=== PATIENT | female | born 1980 | race Caucasian/White ===

== ENCOUNTER 2016-08-22 16:27 | Emergency (ER) | payer OTHER ==
[~2016-08-22 16:27] MED LIST: ALBUTEROL20 ml INH; BACTRIM DS TABL1 TA1 PO; CLEOCIN HCL300 M1 PO; CLONAZEPAM0.5 MG PO; KLONOPIN PO; METFORMIN PO; MONDOXYNE NL100 MG PO; MOTRIN600 M1 PO; NO MEDICATIONS; NORCO1 TAB 10/3 PO; PREDNISONE PO; SEROQUEL PO; TESSALON PERLE100 M1 PO; TYLENOL #3 PO; VOLTAREN75 MG PO; ZITHROMAX PO
== END 2016-08-22 17:05 | disposition home or self-care (01) ==
LOC: SED 16:27
DX: Z71.1 Person with feared health complaint in whom no diagnosis is made (principal); E11.9 Type 2 diabetes mellitus without complications; F41.9 Anxiety disorder, unspecified; F17.210 Nicotine dependence, cigarettes, uncomplicated; Z79.899 Other long term (current) drug therapy; Z88.1 Allergy status to other antibiotic agents
CPT/HCPCS: 99282